=== PATIENT | male | born 1980 | race African-American/Black ===

== ENCOUNTER 2022-09-02 16:44 | Emergency (ER) | payer MEDICARE, OTHER, BC, SELFPAY ==
--- NOTE | 2022-09-02 16:47 | ED.MALEGU ---
HPI - Male Genitourinary General Chief complaint: Urogenital-Male Stated complaint: STD Time Seen by Provider: 09/02/22 16:46 Source: patient Mode of arrival: ambulatory Limitations: no limitations History of Present Illness HPI Narrative: Patient is a 42-year-old male that presents for STD testing. Patient reports girlfriend tested positive for Trichomonas on Sunday. Patient has no symptoms. Patient states he also had and normal UA last week at primary care provider appointment. Patient had kidney transplant this past January and is currently on warfarin. Related Data Home Medications Medication Instructions Recorded Confirmed aspirin 81 mg tablet,delayed mg 09/02/22 release atorvastatin 20 mg tablet mg 09/02/22 ergocalciferol (vitamin D2) 1,250 09/02/22 mcg (50,000 unit) capsule insulin glargine 100 unit/mL (3 unit subcut 09/02/22 mL) subcutaneous pen (Lantus Solostar U-100 Insulin) insulin lispro 100 unit/mL subcut 09/02/22 subcutaneous pen (Humalog KwikPen (U-100) Insulin) metoprolol tartrate 25 mg tablet mg 09/02/22 mycophenolate sodium 360 mg mg PO 09/02/22 tablet,delayed release pantoprazole 40 mg tablet,delayed mg PO 09/02/22 release prednisone 5 mg tablet mg 09/02/22 tacrolimus 1 mg tablet,extended mg PO 09/02/22 release 24 hr (Envarsus XR) tadalafil 20 mg tablet mg 09/02/22 warfarin 2 mg tablet mg 09/02/22 Allergies Allergy/AdvReac Type Severity Reaction Status Date / Time No Known Allergies Allergy Verified 09/02/22 17:15 Review of Systems Review of Systems: All systems reviewed & are unremarkable except as noted in HPI and below Constitutional: Constitutional: Denies chills, Denies fever(s), Denies headache(s), Denies malaise and Denies weakness Eyes: Eyes: Denies change in vision, Denies eye discharge and Denies irritation ENT: Denies otalgia, Denies headache(s), Denies nasal congestion, Denies nasal discharge, Denies sinus pain and Denies sore throat Cardiovascular: Cardiovascular: Denies chest pain, Denies edema, Denies palpitations and Denies dyspnea Respiratory: Respiratory: Denies cough and Denies dyspnea Gastrointestinal: Gastrointestinal: Denies abdominal pain, Denies diarrhea, Denies nausea and Denies vomiting Genitourinary: Genitourinary: Denies hematuria, Denies dysuria, Denies flank pain and Denies urinary frequency Comments: Trichomonas exposure Musculoskeletal: Musculoskeletal: Denies back pain and Denies numbness Integumentary/Breasts: Skin/Breast: Denies pruritus and Denies rash Neurologic: Denies headache(s), Denies numbness and Denies weakness Psychiatric: Psychiatric: Reports no additional psychiatric complaints Endocrine: Endocrine: Denies palpitations PMFSH Comments At time of signature, agree with nursing past medical, surgical, social and family history. There is no relevant family history pertinent to the presenting complaint. Exam Const: General: cooperative, healthy appearing, comfortable, no acute distress and well nourished Nutritional Appearance: well nourished Orientation/consciousness: patient oriented x3 HENMT: Head: normocephalic and atraumatic Ears: external ears normal Face/Nose/Sinus: Normal external nose present, Normal nares present and normal facial exam Face and sinus: normal facial exam Eyes: General: appearance normal, both eyes and all related structures Pupils: Equal, round and reactive pupils present EOM: EOMs intact bilaterally Neck: Neck: normal visual inspection, full ROM and supple Chest: Chest palpation & inspection: normal inspection of the chest Resp: Effort & Inspection: normal respiratory effort and able to speak in complete sentences Cardio: Rate: regular rate Rhythm: regular rhythm GI: Inspection: normal to inspection GI Palp: No abdominal tenderness and Yes Soft to palpation : General: Yes no CVA tenderness Back/Spine/Pelvis: Back: no CVA tenderness Skin:
[2022-09-02 17:11] VITALS: BP 157/89; PULSE 85; RESP 20; TEMP 37; O2SAT 98
== END 2022-09-02 18:04 | disposition home or self-care (01) ==
PROVIDERS: Emergency Provider Nurse Practitioner Family; PCP Internal Medicine
DX: Z20.2 Contact with and (suspected) exposure to infections with a predominantly sexual mode of transmission (principal); R82.90 Unspecified abnormal findings in urine; Z95.810 Presence of automatic (implantable) cardiac defibrillator; Z79.82 Long term (current) use of aspirin; Z11.3 Encounter for screening for infections with a predominantly sexual mode of transmission
CPT/HCPCS: 81003; 87086; 87491; 87591; 87661; 99203; G0463

== ENCOUNTER 2024-01-03 14:14 | Outpatient (CLI) | payer OTHER, SELFPAY ==
--- NOTE | ~2024-01-03 | XR_ITS ---
Right foot Technique: AP, oblique, and lateral views were obtained. Clinical History: Charcot foot Findings: No acute fracture evident. There is hallux valgus. There is severe Charcot foot, with disor ganization, debris, and sclerosis extensively involving the midfoot are bones and metatarsals, especi ally second through fourth. Vascular calcifications are present. Soft tissues are unremarkable. Impression: Severe Charcot foot, predominantly affecting the midfoot, as detailed above. Hallux valgus. Reviewed, dictated and finalized at location [employer] Impression: Severe Charcot foot, predominantly affecting the midfoot, as detailed above. Hallux valgus.
== END 2024-01-03 14:15 | disposition home or self-care (01) ==
LOC: MICIMG 14:19
PROVIDERS: PCP Internal Medicine; Visit Provider Podiatrist Foot & Ankle Surgery
DX: A52.16 Charcot's arthropathy (tabetic) (principal); M20.11 Hallux valgus (acquired), right foot
CPT/HCPCS: 73630

== ENCOUNTER 2024-02-12 14:46 | Outpatient (RCR) | payer OTHER, SELFPAY ==
--- NOTE | 2024-02-12 16:08 | OPREHPOC ---
Outpatient Therapy Plan of Care This is a Multidisciplinary Plan of Care that may contain components documented by all disciplines (PT, OT, and ST.) PT Problem 1 PT Problem #1 Knowledge Deficit PT Goal 1 Goal / Goal Update *indep with HEP Target Visit 6 PT Problem 2 PT Problem #2 Pain PT Goal 1 Goal / Goal Update * pt report pain rating at worst of 4/10 Target Visit 6 PT Goal 2 Goal / Goal Update * pt report standing/walking tolerance of 2 hours Target Visit 6 PT Problem 3 PT Problem #3 Impaired Strength PT Goal 1 Goal / Goal Update increase strength of R foot and ankle for stability and improved walking pattern bilateral standing ankle PF x 15 reps without UE support Target Visit 6 PT Problem 4 PT Problem #4 Impaired Range of Motion PT Goal 1 Goal / Goal Update increase R ankle active motion, to improve walking and balance skills: 1* PF 45' 2* inversion 20' 3* eversion 20' Target Visit 6 PT Problem 5 PT Problem #5 Impaired Lymphatic System PT Goal 1 Goal / Goal Update edema over R dorsum of foot and ankle, lower leg 1* educate pt and pt obtain correct compression for R lower leg decrease circumferential measurements of R LE: 2* above malleoli 26 cm 3* figure 8 60 cm Target Visit 6
--- NOTE | 2024-02-12 16:08 | PTOPEVAL1 ---
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 is able to do everything at home and work Reported Pain Level Pain Score Self Report Additional Pain Score Comments pain range in the past week 0-6/10; burning, neuropathy increase pain: walking/standing for 1 to 1 & 1/2 hours decrease pain: sit, rest, rub foot; tap foot on floor; have swelling in foot and ankle, increase at end of day. with rest and elevation- ankle swelling goes down, but foot stays swollen Assessment PT Clinical Summary Darrel has the diagnosis of Charcot foot R. His history includes neuropathy of feet, toe amputation bilateral, kidney transplant and diabetes. His x ray report states severe Charcot foot. He has an order for a custom fitted ankle/foot boot, but has not yet received it. Self assessment LE Functional scale rating of 38% limitation in activity level. Walking/standing tolerance of 1 to 1 & 1/2 hours due to R foot/ ankle pain. With the evaluation: he has bony deformity of both feet, with R more severe; edema over dorsum of foot, ankle and lower leg; decreased R ankle ROM and strength with gait abnormalities. Skilled PT services are indicated for therapeutic exercises to increase R ankle strength and ROM, education for HEP and edema control with compression garment and self care. Plan of Care Interventions Intermittent Compression Pump,Manual Therapy,Neuro Re-education,Patient/Caregiver Education, Therapeutic Activities,Therapeutic Exercise PT Services Indicated Yes Treatment Frequency and 1x/wk for 6 visits Duration These treatments will address the objective and functional deficits as defined above. The patient will be advanced safely and appropriately in order for the patient to progress towards his/her prior level of function. Additional exercises will be introduced and as well as a comprehensive home exercise program upon discharge, if needed, ?to ensure carryover of functional gains achieved in the clinic. This treatment plan has been reviewed and agreement upon by the patient.
--- NOTE | 2024-02-26 13:47 | PCPTNOTE ---
Pt canceled due to injury of L foot.
--- NOTE | 2024-03-27 15:04 | PTOPDC ---
Assessment and note entered by Lulú Simms, PT Assessment Status Discharge - Pt Not Present Other ICD-10 Condition Codes ( Charcot foot R PT) Onset July 2023 Subjective Information pt was not seen this date. Assessment PT Clinical Summary Darrel received the PT evaluation on February 11 and did not return for any further treatment. Discharge PT due to stopped attending. The goals were not addressed. Plan of Care PT Services Indicated No
== END 2024-03-27 16:48 | disposition home or self-care (01) ==
LOC: ANHPT 14:46
PROVIDERS: PCP Internal Medicine; Visit Provider Podiatrist Foot & Ankle Surgery
DX: A52.16 Charcot's arthropathy (tabetic) (principal)
CPT/HCPCS: 97110; 97161; 97530